=== PATIENT | female | born 1950 | race Caucasian/White ===

== ENCOUNTER 2017-04-06 08:00 | Outpatient (CLI) | payer MEDICARE, MEDICAID | END 2017-04-06 08:01 | disposition home or self-care (01) | LOC: BICULT 08:00 | PROVIDERS: ATTEND Internal Medicine | DX: R79.89 Other specified abnormal findings of blood chemistry (principal) | CPT/HCPCS: 76700 ==

== ENCOUNTER 2017-11-26 09:26 | Outpatient (CLI) | payer MEDICARE, OTHER | END 2017-11-26 09:27 | disposition home or self-care (01) | LOC: BICRAD 09:26 | PROVIDERS: ATTEND Internal Medicine | DX: M47.896 Other spondylosis, lumbar region (principal); M47.894 Other spondylosis, thoracic region; I10 Essential (primary) hypertension; M41.9 Scoliosis, unspecified; M46.94 Unspecified inflammatory spondylopathy, thoracic region; I51.7 Cardiomegaly | CPT/HCPCS: 36415; 71046; 72072; 72100; 80053; 80061; 82306; 83036; 83540; 83735; 84439; 84443; 85025 ==

== ENCOUNTER 2018-03-18 10:09 | Outpatient (CLI) | payer MEDICARE, MEDICAID ==
[2018-03-18 12:02] LABS: Hemoglobin 13.2 g/dL (12.0-16.0); Mean Corpuscular HGB CONC 32.6 g/dL (32.0-36.0); Mean Corpuscular Hemoglobin 31.4 pg (27.0-31.0); Mean Corpuscular Volume 96.3 fL (78.0-98.0); Mean Platelet Volume 8.8 fL (7.4-10.4); Platelet Count 170 thou/uL (130-400); White Blood Cell (WBC) Count 6.1 thou/uL (4.8-10.8)
[2018-03-18 12:06] LABS: INR-International Normal Ratio 2.5; PTT 38.1 SEC (22.9-36.1); Prothrombin Time 27.2 SEC (12.0-14.7)
[2018-03-18 12:28] LABS: ALT (SGPT) 39 U/L (8-55); AST (SGOT) 42 U/L (5-34); Albumin 3.9 g/dL (3.4-4.8); Alkaline Phosphatase 147 U/L (40-150); Anion Gap 13 mmol/L (10-20); BUN (Urea Nitrogen) 29 mg/dL (9.8-20.1); Bilirubin, Total 0.8 mg/dL (0.2-1.2); Calc. Creatinine Clearance 0 mL/min (70-130); Calcium 9.1 mg/dL (7.8-10.44); Carbon Dioxide 27 mmol/L (23-31); Cardiac Risk 2.7 (Less than 4.5); Chloride 100 mmol/L (98-107); Cholesterol 139 mg/dl (< 200 Desired); Estimated GFR-MDRD 51; Globulin 2.8 g/dL (2.4-3.5); Glucose 101 mg/dL (80-115); HDL Cholesterol 51 mg/dL (>60 Neg Risk); LDL Cholesterol, Calculated 57 mg/dL; Potassium 3.8 mmol/L (3.5-5.1); Protein, Total 6.7 g/dL (6.0-8.3); Sodium 136 mmol/L (136-145); Triglycerides 154 mg/dL (Less than 150)
--- NOTE | 2018-03-18 12:36 | EKG ---
Test Reason : Blood Pressure : / mmHG Vent. Rate : 061 BPM Atrial Rate : 061 BPM P-R Int : 000 ms QRS Dur : 172 ms QT Int : 514 ms P-R-T Axes : 000 -13 104 degrees QTc Int : 517 ms AV sequential or dual chamber electronic pacemaker When compared with ECG of 12-JUL-2016 19:19, Vent. rate has decreased BY 10 BPM Confirmed by BUBBA LACEY ([id number]) on 03/18/2018 12:36:13 PM Referred By: YAMILETH Confirmed By:BUBBA LACEY
== END 2018-03-18 10:10 | disposition home or self-care (01) ==
LOC: LABBT 10:09
PROVIDERS: ATTEND Internal Medicine Cardiovascular Disease
DX: Z01.818 Encounter for other preprocedural examination (principal)
CPT/HCPCS: 80053; 80061; 85027; 85610; 85730; 93005; 93010

== ENCOUNTER 2018-03-23 10:17 | Day surgery (SDC) | payer MEDICARE, MEDICAID ==
[2018-03-18 10:21] VITALS: BMI 15.3
[2018-03-23] MEDS ORDERED: Diazepam 5 MG TAB ONE (10:30)
[2018-03-23 11:17] LABS: INR-International Normal Ratio 1.1; PTT 29.4 SEC (22.9-36.1); Prothrombin Time 14.4 SEC (12.0-14.7)
--- NOTE | 2018-03-23 14:45 | RAD ---
PORTABLE AP CHEST X-RAY: 03/23/2018 HISTORY: Fever and cough. COMPARISON: 11/26/2017 FINDINGS: A multilead left subclavian AICD remains in place and unchanged in position. Post surgical changes r elated to median sternotomy are again present. The cardiac silhouette remains enlarged. The pulmona ry vasculature is within normal limits. Vascular calcifications are seen in the thoracic aorta. Ost eopenia is present. There is right convex curvature of the thoracic spine also noted on prior exam. There has been no interval change compared to the prior exam. IMPRESSION: Cardiomegaly without acute cardiopulmonary process. POS: [facility]
== END 2018-03-23 13:25 | disposition home or self-care (01) ==
LOC: CCL 10:17
PROVIDERS: ATTEND Internal Medicine Cardiovascular Disease
DX: I47.2 Ventricular tachycardia (principal); I25.5 Ischemic cardiomyopathy; I48.2 Chronic atrial fibrillation; I25.10 Atherosclerotic heart disease of native coronary artery without angina pectoris; E78.5 Hyperlipidemia, unspecified; M32.9 Systemic lupus erythematosus, unspecified; Z53.09 Procedure and treatment not carried out because of other contraindication; Z79.82 Long term (current) use of aspirin; Z79.899 Other long term (current) drug therapy; Z91.018 Allergy to other foods; Z91.048 Other nonmedicinal substance allergy status; Z95.5 Presence of coronary angioplasty implant and graft
CPT/HCPCS: 36415; 71045; 85610; 85730

== ENCOUNTER 2018-05-05 10:05 | Outpatient (CLI) | payer MEDICARE, OTHER ==
--- NOTE | 2018-05-05 11:18 | RAD ---
3 VIEWS THORACIC SPINE: Date: 05/05/18 INDICATION: Back pain. FINDINGS: There is mild to moderate thoracolumbar scoliosis and multilevel spondylosis of the thoracic spine. N o definite acute fracture or subluxation is evident. There is cardiomegaly with AICD and post CABG ch zee. There is diffuse osteopenia. IMPRESSION: 1. No acute osseous abnormality. 2. Mild multilevel spondylosis thoracic spine. 3. Mild to moderate thoracolumbar scoliosis. POS: [facility]
== END 2018-05-05 10:06 | disposition home or self-care (01) ==
LOC: BICRAD 10:05
PROVIDERS: ATTEND Physical Medicine & Rehabilitation
DX: M54.5 Low back pain (principal); M47.814 Spondylosis without myelopathy or radiculopathy, thoracic region; M41.9 Scoliosis, unspecified
CPT/HCPCS: 72072

== ENCOUNTER 2018-08-09 06:03 | Outpatient (CLI) | payer MEDICARE, MEDICAID ==
[2018-08-09 17:02] LABS: INR-International Normal Ratio 1.1; PTT 25.6 SEC (22.9-36.1); Prothrombin Time 13.8 SEC (12.0-14.7)
[2018-08-09 17:23] LABS: ALT (SGPT) 51 U/L (8-55); AST (SGOT) 76 U/L (5-34); Albumin 3.7 g/dL (3.4-4.8); Alkaline Phosphatase 158 U/L (40-150); Bilirubin, Direct 0.3 mg/dL (0.1-0.3); Bilirubin, Total 0.5 mg/dL (0.2-1.2); Protein, Total 6.5 g/dL (6.0-8.3)
== END 2018-08-09 06:04 | disposition home or self-care (01) ==
LOC: LABBT 06:03
PROVIDERS: ATTEND Internal Medicine Cardiovascular Disease
DX: Z01.812 Encounter for preprocedural laboratory examination (principal); I47.2 Ventricular tachycardia; I49.01 Ventricular fibrillation
CPT/HCPCS: 80076; 85610; 85730

== ENCOUNTER 2018-08-10 06:08 | Day surgery (SDC) | payer MEDICARE, MEDICAID ==
[2018-08-09 16:53] VITALS: BMI 13.8
[2018-08-10 06:55] LABS: PTT 24.6 SEC (22.9-36.1); Prothrombin Time 13.7 SEC (12.0-14.7)
[2018-08-10] MEDS ORDERED: Fentanyl 100 MCG/2 ML VIAL ONE (07:11)
[2018-08-10] MEDS ORDERED: Midazolam HCl 2 mg/2 ml Vial ONE (07:11)
[2018-08-10 07:12] LABS: ALT (SGPT) 51 U/L (8-55); AST (SGOT) 76 U/L (5-34); Albumin 3.6 g/dL (3.4-4.8); Alkaline Phosphatase 151 U/L (40-150); Bilirubin, Direct 0.3 mg/dL (0.1-0.3); Bilirubin, Total 0.6 mg/dL (0.2-1.2); Protein, Total 6.8 g/dL (6.0-8.3)
[2018-08-10] MEDS ORDERED: Iopamidol 370 76% 100 ML VIAL ONE (09:49)
== END 2018-08-10 12:49 | disposition home or self-care (01) ==
LOC: CCL 06:08
PROVIDERS: ATTEND Internal Medicine Cardiovascular Disease
PROC: 4A023N7 Measurement of Cardiac Sampling and Pressure, Left Heart, Percutaneous Approach (ICD-10-PCS; principal; 2018-08-10)
PROC: B2111ZZ Fluoroscopy of Multiple Coronary Arteries using Low Osmolar Contrast (ICD-10-PCS; 2018-08-10)
PROC: B2131ZZ Fluoroscopy of Multiple Coronary Artery Bypass Grafts using Low Osmolar Contrast (ICD-10-PCS; 2018-08-10)
PROC: B2181ZZ Fluoroscopy of Left Internal Mammary Bypass Graft using Low Osmolar Contrast (ICD-10-PCS; 2018-08-10)
DX: I25.810 Atherosclerosis of coronary artery bypass graft(s) without angina pectoris (principal); I25.82 Chronic total occlusion of coronary artery; I05.9 Rheumatic mitral valve disease, unspecified; I47.2 Ventricular tachycardia; I48.1 Persistent atrial fibrillation; I25.5 Ischemic cardiomyopathy; I50.9 Heart failure, unspecified; I25.2 Old myocardial infarction; J45.909 Unspecified asthma, uncomplicated; M81.0 Age-related osteoporosis without current pathological fracture; E78.5 Hyperlipidemia, unspecified; L93.0 Discoid lupus erythematosus; Z87.891 Personal history of nicotine dependence; Z79.01 Long term (current) use of anticoagulants; Z79.82 Long term (current) use of aspirin; Z79.899 Other long term (current) drug therapy; Z88.0 Allergy status to penicillin; Z91.018 Allergy to other foods; Z95.1 Presence of aortocoronary bypass graft
CPT/HCPCS: 80076; 85610; 85730; 93459; 93567; 99152; 99153; C1769; J1644; J2250; J3010; Q9967